=== PATIENT | male | born 1945 | race Caucasian/White ===

== ENCOUNTER 2023-01-08 14:32 | Emergency (ER) | payer MEDICARE, SELFPAY ==
[2023-01-08 14:42] VITALS: BP 122/70; PULSE 69; RESP 15; TEMP 37.1; O2SAT 97
--- NOTE | 2023-01-08 15:46 | ED.GENADUL_ITS ---
Discharge Plan Disposition Patient Disposition: Home Condition: Stable Discharge Details Clinical Impression: Avulsion of skin of finger Primary Care Provider: Kaylen Schmidt ED Provider: Rossana Barfield Home Meds and New Rx's Prescriptions: Continued sertraline 50 mg tablet 50 mg PO DAILY Discharge Instructions Additional Instructions: Keep wound clean and dry Change dressing every 48 hours Take Tylenol as needed for pain Recheck in 48 hours With spreading redness, fever, worsening pain, recommendation for reassessment Referrals: Kaylen Schmidt [Primary Care Provider] - Medical Decision Making 77-year-old male presents with avulsion to second digit on hands, tetanus up-to-date Wound cleansed, flap removed, Xeroform applied Bacitracin applied No evidence of secondary infection Low suspicion for fracture, patient Clines x-ray Tetanus up-to-date Tolerated procedure without incident Return precautions reviewed and patient expressed understanding HPI General Date/Time Provider Initiated Documentation: 01/08/23 14:41 . HPI Narrative: 77-year-old male who is otherwise reportedly healthy presents with avulsion to right second digit while using a saws all. Only hit the tip of his finger reportedly. Denies any additional injuries. States that he presents today as the event occurred on Tuesday secondary to discoloration to the flap of skin and some mild odor. He denies any fever or chills. His tetanus is reportedly up-to-date. This is a superficial injury only per patient. Just Related Data Home Medications Medication Instructions Recorded Confirmed sertraline 50 mg tablet 50 mg PO DAILY 01/08/23 01/08/23 Allergies Allergy/AdvReac Type Severity Reaction Status Date / Time No Known Allergies Allergy Unverified 01/08/23 14:46 General Stated Complaint: Laceration ANNA: 4 PFSH All Active Problems (Updated 01/08/23 @ 15:23 by BO Foreman) Avulsion of skin of finger (Acute) Social History Smoking/Tobacco Use Status: Never Smoking risk assessment performed?: Yes Alcohol Intake: current Alcohol Intake frequency: holidays/special occasions only Alcohol type: beer and hard liquor Drug use: Occasionally Substance use type: marijuana Course Vital Signs Vital signs: Vital Signs Temperature 37.1 C 01/08/23 14:42 Pulse 69 01/08/23 14:42 Respiratory Rate 15 01/08/23 14:42 Blood Pressure 122/70 01/08/23 14:42 Pulse Oximetry 97 01/08/23 14:42 Temperature 37.1 C 01/08/23 14:42 Temperature Source Temporal Artery Scan 01/08/23 14:42 Pulse 69 01/08/23 14:42 Respiratory Rate 15 01/08/23 14:42 Respiratory Effort Normal 01/08/23 14:45 Blood Pressure 122/70 01/08/23 14:42 Blood Pressure Position Sitting 01/08/23 14:42 Pulse Oximetry 97 01/08/23 14:42 Oxygen Delivery Method Room Air 01/08/23 14:42 Oxygen Flow Rate 0 01/08/23 14:42 Pain Level 4 01/08/23 14:48 Procedures Other Description: Digital block performed right second digit on hand, flap debrided and wound cleansed, Xeroform and dressing applied PAWSS Have you Been Recently Intoxicated or Drunk Within the Last 30 days?: No Have you Ever Experienced Previous Episodes of Alcohol Withdrawal?: No Have you ever Experienced Withdrawal Seizures?: No Have you ever Experienced Delirium Tremens(DT)s?: No Have you ever undergone Alcohol Rehabilitation Treatment (i.e, inpt ot outpatient treatment programs)?: No Have you ever Experienced Blackouts?: No Have you ever Combined Alcohol with other Downers within the last 90 days?: No Have you ever Combined Alcohol with any other Substance of Abuse during the last 90 days?: No Result: 0
== END 2023-01-08 15:49 | disposition home or self-care (01) ==
PROVIDERS: Emergency Provider Physician Assistant; PCP Nurse Practitioner Family
DX: S61.200A Unspecified open wound of right index finger without damage to nail, initial encounter (principal); W29.3XXA Contact with powered garden and outdoor hand tools and machinery, initial encounter
CPT/HCPCS: 99283